=== PATIENT | female | born 1930 | race Caucasian/White ===

== ENCOUNTER → 2016-12-05 | Outpatient (CLI) | payer OTHER | END | disposition home or self-care (01) | DX: M17.12 Unilateral primary osteoarthritis, left knee (principal); R26.9 Unspecified abnormalities of gait and mobility; R29.3 Abnormal posture; M79.605 Pain in left leg; M25.562 Pain in left knee; M25.662 Stiffness of left knee, not elsewhere classified; M62.81 Muscle weakness (generalized); Z74.1 Need for assistance with personal care | CPT/HCPCS: 97110 GP; 97150 GO; 97161 GP; 97165 GO; G8978 GP; G8979 GP; G8980 GP; G8987 GO; G8988 GO; G8989 GO ==

== ENCOUNTER 2016-12-24 21:30 | Inpatient (IN) | payer OTHER ==
[~2016-12-24] VITALS: Ht 152.4 cm; Wt 60.2 kg
[~2016-12-24 21:30] MED LIST: COREG12.5 M1 PO; COZAAR100 MG PO; HYDROCHLOROTHIA25 MG PO; NORVASC5 MG PO; OMEPRAZOLE40 M1 PO; VITAMIN D2000 UNI1 PO
[2016-12-25 10:39] VITALS: BP 152/68
[2016-12-25 15:05] LABS: HEMATOCRIT 31.6 % (36.0-46.0); MCH 30.8 PG (29.0-34.0); MCHC 33.9 G/DL (30.0-36.0); MCV 91.1 FL (83-99); MEAN PLAT.VOLUME 10.1 uM^3 (9.5-12.4); PLATELET COUNT 158 K/uL (156-360); RBC DIS.WIDTH-CV 13.9 % (11.8-14.6); RBC DIS.WIDTH-SD 46.5 % (39-53); RED BLOOD COUNT 3.47 M/uL (3.80-5.20); WHITE BLOOD COUNT 6.3 K/uL (4.1-10.2)
[2016-12-25 16:04] VITALS: BP 124/57
[2016-12-25 19:52] VITALS: BP 139/63
[2016-12-26 00:17] VITALS: BP 130/58
[2016-12-26 04:13] VITALS: BP 135/66
[2016-12-26 05:09] LABS: HEMATOCRIT 29.9 % (36.0-46.0)
[2016-12-26 05:28] LABS: CHLORIDE 106 mEq/L (99-109); POTASSIUM 3.4 mEq/L (3.7-5.4); SODIUM 138 mEq/L (136-147)
[2016-12-26 05:30] LABS: GLUCOSE 130 mg/dL (70-99)
[2016-12-26 05:31] LABS: ANION GAP 7 MEQ/L (2-14)
[2016-12-26 05:34] LABS: GFR ESTIMATE (CALCULATED) > 59 mL/min/
[2016-12-26 05:35] LABS: UREA NITROGEN (BUN) 17 mg/dL (9-23)
[2016-12-26 07:41] VITALS: BP 144/65
[2016-12-26 15:38] VITALS: BP 134/63
[2016-12-26 20:13] VITALS: BP 141/69
[2016-12-26 23:39] VITALS: BP 162/75
[2016-12-27 04:30] VITALS: BP 139/71
[2016-12-27 05:50] LABS: MCV 88.7 FL (83-99)
[2016-12-27 08:00] VITALS: BP 143/66
[2016-12-27 08:43] VITALS: BP 143/66
[2016-12-27 12:29] VITALS: BP 125/59
[2016-12-27 15:55] VITALS: BP 143/63
[2016-12-27 20:05] VITALS: BP 144/66
[2016-12-28 00:34] VITALS: BP 139/63
[2016-12-28 04:17] VITALS: BP 136/61
[2016-12-28 08:33] VITALS: BP 125/84
[2016-12-28] MEDS ORDERED: SENNA PLUS TAB1 EACH PO (08:35)
[2016-12-28] MEDS ORDERED: ENDOCET 5-3251 EACH PO (08:36)
[2016-12-28] MEDS ORDERED: LOVENOX30 MG/0.3 SC (08:36)
[2016-12-28 12:00] VITALS: BP 125/60
== END 2016-12-28 12:58 | DRG 470 ==
LOC: ENRESERV 21:30 → 3WEST 12-25 08:48 → 2SOUTH 12-25 08:48 → ENRESERV 12-25 10:37 → 2SOUTH 12-25 10:40 → 3WEST 12-25 15:15 → 2SOUTH 12-25 15:19 → 3WEST 12-28 12:58
PROVIDERS: Orthopaedic Surgery
PROC: 0SRD0J9 Replacement of Left Knee Joint with Synthetic Substitute, Cemented, Open Approach (ICD-10-PCS; principal; 2016-12-25)
DX: M17.12 Unilateral primary osteoarthritis, left knee (principal); I10 Essential (primary) hypertension; K21.9 Gastro-esophageal reflux disease without esophagitis; M21.00 Valgus deformity, not elsewhere classified, unspecified site
CPT/HCPCS: 71010; 73560; 80048; 85014; 85018; 85027; C1713; C1776; J0131; J0690; J1100; J1650; J2250; J2405; J7050